=== PATIENT | male | born 1950 | race African-American/Black ===

== ENCOUNTER → 2016-07-06 | Outpatient (CLI) | payer OTHER ==
[~2016-07-06] MED LIST: AMLO10TA2 PO; DIAZ10TA PO; LORA0.5T PO; OXYC1TAB9 PO; PHEN100C PO; WARF5TAB7 PO
== END | disposition home or self-care (01) ==
LOC: CFH 11:53
PROVIDERS: ATTEND Family Medicine
DX: M25.561 Pain in right knee (principal)

== ENCOUNTER → 2016-09-17 | Outpatient (CLI) | payer OTHER | END | disposition home or self-care (01) | LOC: CFH 14:06 | PROVIDERS: ATTEND Family Medicine | DX: M19.012 Primary osteoarthritis, left shoulder (principal) ==

== ENCOUNTER → 2016-12-15 | Outpatient (CLI) | payer OTHER | END | disposition home or self-care (01) | LOC: CFH 11:00 | PROVIDERS: ATTEND Family Medicine | DX: M25.561 Pain in right knee (principal) ==

== ENCOUNTER → 2017-02-19 | Outpatient (CLI) | payer OTHER | END | disposition home or self-care (01) | LOC: RAD 09:10 | PROVIDERS: ATTEND Family Medicine | DX: M47.894 Other spondylosis, thoracic region (principal); I27.82 Chronic pulmonary embolism; I12.9 Hypertensive chronic kidney disease with stage 1 through stage 4 chronic kidney disease, or unspecified chronic kidney disease; N18.9 Chronic kidney disease, unspecified | CPT/HCPCS: 71020; 93005 ==

== ENCOUNTER → 2017-03-12 | Outpatient (CLI) | payer OTHER ==
[~2017-03-12] MED LIST changes: +ALBU18HF PO; +ALLO100T30 PO; +PHEN50TA4 PO; +RIVA20TA PO; +SERT100T5 PO; +TOPI100T8 PO
== END ==
LOC: STAR 15:58
PROVIDERS: ATTEND Orthopaedic Surgery
DX: Z02.9 Encounter for administrative examinations, unspecified (principal)

== ENCOUNTER 2017-03-19 09:39 | Day surgery (SDC) | payer OTHER ==
[~2017-03-19] VITALS: Ht 177.8 cm; Wt 102.0 kg
[2017-03-19] MEDS ORDERED: LACTATED RINGERS 1,000 ML IV SCH (09:55)
[2017-03-19 10:13] VITALS: BP 144/85
[2017-03-19] MEDS ORDERED: MIDAZOLAM 1 MG/ML, 2ML ONE (10:34)
[2017-03-19] MEDS ORDERED: FENTANYL PF 100 MCG/2ML ONE ×2 (10:34→12:17)
[2017-03-19] MEDS ORDERED: BUPIVACAINE/PF 0.5% ONE (10:58)
[2017-03-19] MEDS ORDERED: LIDOCAINE/PF 1%-EPI 1:200K, 30 ML ONE (10:58)
[2017-03-19] MEDS ORDERED: LIDOCAINE-MPF 2% ,5ML ONE (11:18)
[2017-03-19] MEDS ORDERED: EPHEDRINE 50 MG/ML, 1ML ONE (11:18)
[2017-03-19] MEDS ORDERED: ALBUTEROL HFA 90 MCG/SPRAY INH PRN (11:30)
[2017-03-19] MEDS ORDERED: BUPIVACAINE/PF-EPI 0.5% 1:200K IM ONE (11:42)
[2017-03-19] MEDS ORDERED: LIDOCAINE 1%-EPI 1:100K, 30ML INFIL ONE (11:44)
[2017-03-19 11:49] LABS: ASPARTATE AMINO TRANSFERASE 12 U/L (15-37); BLOOD UREA NITROGEN 19 mg/dL (7-18)
[2017-03-19 11:50] LABS: HEMATOCRIT 43.5 % (39.2-51.8); HEMOGLOBIN 14.3 g/dL (13.7-18.0); WHITE BLOOD COUNT 7.9 x10^3/uL (3.4-10)
[2017-03-19] MEDS ORDERED: PROMETHAZINE 25 MG/ML, 1ML IV PRN (12:00)
[2017-03-19] MEDS ORDERED: LORazepam 2 MG/ML, 1ML IVPush PRN (12:00)
[2017-03-19] MEDS ORDERED: OXYcodone 5 MG/5 ML ORAL.SOL UDC PO PRN (12:00)
[2017-03-19] MEDS ORDERED: ACETAMINOPHEN 325 MG TABLET PO PRN (12:00)
[2017-03-19] MEDS ORDERED: LABETALOL 5MG/ML, 20ML IV PRN (12:00)
[2017-03-19] MEDS ORDERED: HYDROmorphone 1 MG/ML, 1ML IV PRN (12:00)
[2017-03-19] MEDS ORDERED: hydrALAzine 20 MG/ML, 1ML IV PRN (12:00)
[2017-03-19] MEDS ORDERED: ALBUTEROL SULFATE 2.5 MG/3 ML NPPB PRN (12:00)
[2017-03-19] MEDS ORDERED: ACETAMINOPHEN 650 MG/20.3 ML UDC ONE (12:16)
[2017-03-19] MEDS ORDERED: OXYcodone 5 MG/5 ML ORAL.SOL UDC ONE (12:17)
[2017-03-19] MEDS ORDERED: EPINEPHRINE 1 MG/ML, 1ML ONE (12:29)
[2017-03-19] MEDS: FENTANYL PF 100 MCG/2ML IV PRN ×2 (12:33→12:40)
[2017-03-19] MEDS ORDERED: CEFAZOLIN 1,000 MG ONE (12:40)
[2017-03-19] MEDS ORDERED: NEOSTIGMINE 1 MG/ML, 10ML ONE (12:40)
[2017-03-19] MEDS ORDERED: GLYCOPYRROLATE 0.2MG/1ML, 5ML ONE (12:40)
[2017-03-19] MEDS ORDERED: SUCCINYLCHOLINE 20 MG/ML, 10ML ONE (12:40)
[2017-03-19] MEDS ORDERED: ONDANSETRON 2MG/ML, 2ML ONE (12:40)
[2017-03-19] MEDS ORDERED: PROPOFOL 10 MG/ML, 20ML ONE (12:40)
[2017-03-19] MEDS ORDERED: ROCURONIUM 10 MG/ML,10ML ONE (12:40)
[2017-03-19] MEDS ORDERED: DEXAMETHASONE 4 MG/ML, 1ML ONE (12:40)
[2017-03-19] MEDS ORDERED: HYDROmorphone 2 MG/ML, 1ML ONE (12:42)
[2017-03-19] MEDS ORDERED: TOPIRAMATE 100 MG TABLET PO SCH (21:00)
[2017-03-20] MEDS ORDERED: SERTRALINE 100MG TABLET PO SCH (09:00)
[2017-03-20] MEDS ORDERED: RIVAROXABAN 20 MG TABLET PO SCH (09:00)
[2017-03-20] MEDS ORDERED: PHENYTOIN 50 MG TAB.CHEW PO SCH (09:00)
[2017-03-20] MEDS ORDERED: ALLOPURINOL 100 MG TABLET PO SCH (09:00)
[2017-03-20] MEDS ORDERED: TEMPLATE NON-FORMULARY MED. (Amlodipine Besylate (Amlodipine Besylate**) 10 MG) PO SCH (09:00)
== END 2017-03-19 14:40 ==
LOC: OUT 09:39
PROVIDERS: ATTEND Orthopaedic Surgery
DX: S83.271A Complex tear of lateral meniscus, current injury, right knee, initial encounter (principal); M94.261 Chondromalacia, right knee; M11.261 Other chondrocalcinosis, right knee; M65.861 Other synovitis and tenosynovitis, right lower leg; I10 Essential (primary) hypertension; Z86.718 Personal history of other venous thrombosis and embolism; X58.XXXA Exposure to other specified factors, initial encounter; Y93.89 Activity, other specified; Y92.89 Other specified places as the place of occurrence of the external cause; Y99.8 Other external cause status
CPT/HCPCS: 29881; 36415; 80053; 85025; J0171; J0330; J0690; J1100; J1170; J2250; J2405; J2704; J3010; J3490; J7120; J2710

== ENCOUNTER 2017-08-07 12:15 | Emergency (ER) | payer OTHER ==
[~2017-08-07] VITALS: Ht 177.8 cm; Wt 103.2 kg
[~2017-08-07 12:15] MED LIST changes: +WARF-36 PO; -WARF5TAB7 PO
[2017-08-07 12:16] VITALS: BP 133/79
== END 2017-08-07 12:45 | disposition home or self-care (01) ==
LOC: ED 12:30
DX: I88.9 Nonspecific lymphadenitis, unspecified (principal); I10 Essential (primary) hypertension; G40.909 Epilepsy, unspecified, not intractable, without status epilepticus
CPT/HCPCS: 99282

== ENCOUNTER 2017-09-23 20:57 | Emergency (ER) | payer OTHER ==
[~2017-09-23] VITALS: Ht 177.8 cm; Wt 104.5 kg
[~2017-09-23 20:57] MED LIST changes: +OXYC-432 PO; -OXYC1TAB9 PO
[2017-09-23] MEDS ORDERED: MORPHINE SULFATE 4 MG/ML, 1ML IVPush PRN (22:30)
[2017-09-23] MEDS ORDERED: MORPHINE SULFATE 4 MG/ML, 1ML ONE (22:40)
[2017-09-23 22:49] LABS: BASOPHILS # (AUTO) 0.07 x10^3/uL (0-0.1); BASOPHILS % (AUTO) 1 % (0-1); EOSINOPHILS # (AUTO) 0.29 x10^3/uL (0-0.4); EOSINOPHILS % (AUTO) 4 % (1-7); LYMPHOCYTES # (AUTO) 1.78 x10^3/uL (1-3.4); LYMPHOCYTES % (AUTO) 23 % (22-44); MD NO; MEAN CORPUSCULAR HEMOGLOBIN 32.8 pg (27.5-34.5); MEAN CORPUSCULAR HGB CONC 33.6 g/dL (33.2-36.2); MEAN CORPUSCULAR VOLUME 97.8 fL (81-97); MEAN PLATELET VOLUME 8.5 fL (7.4-10.4); MONOCYTES # (AUTO) 0.95 x10^3/uL (0.2-0.8); MONOCYTES % (AUTO) 12 % (2-9); NEUTROPHILS # (AUTO) 4.55 x10^3/uL (1.8-6.8); NEUTROPHILS % (AUTO) 60 % (42-75); PLATELET COUNT 139 x10^3/uL (130-400); RED BLOOD COUNT 4.21 x10^6/uL (4.38-5.82); RED CELL DISTRIBUTION WIDTH 14.1 % (9.4-14.8)
[2017-09-23 22:55] LABS: ALBUMIN 3.3 g/dL (3.4-5.0); ANION GAP 5 mmol/L (5-15); CALCIUM 8.5 mg/dL (8.5-10.1); CHLORIDE 113 mmol/L (98-107)
[2017-09-23 22:59] LABS: ALANINE AMINOTRANSFERASE 23 U/L (12-78); ALKALINE PHOSPHATASE 164 U/L (45-117); BILIRUBIN,TOTAL 0.4 mg/dL (0.2-1.0); CREATININE 1.78 mg/dL (0.7-1.3); TOTAL PROTEIN 7.4 g/dL (6.4-8.2)
[2017-09-24 00:47] VITALS: BP 137/76
[2017-09-24] MEDS ORDERED: HYDROcodone/APAP 5/325 TABLET ONE (00:57)
[2017-09-24] MEDS ORDERED: HYDROcodone/APAP 5/325 TABLET PO ONE (01:00)
== END 2017-09-24 01:23 | disposition home or self-care (01) ==
LOC: ED 23:26
DX: M25.562 Pain in left knee (principal); M79.662 Pain in left lower leg; M54.12 Radiculopathy, cervical region; I10 Essential (primary) hypertension; G43.909 Migraine, unspecified, not intractable, without status migrainosus; M19.90 Unspecified osteoarthritis, unspecified site; Z86.711 Personal history of pulmonary embolism
CPT/HCPCS: 36415; 70450; 71045; 80053; 80185; 85025; 93005; 93970; 96374

== ENCOUNTER 2017-09-29 17:20 | Emergency (ER) | payer OTHER ==
[~2017-09-29] VITALS: Ht 177.8 cm; Wt 100.0 kg
[2017-09-29] MEDS ORDERED: SODIUM CHLORIDE FLUSH 10ML SYR IVF ONE (18:00)
[2017-09-29 18:23] LABS: ALBUMIN 3.5 g/dL (3.4-5.0); ANION GAP 7 mmol/L (5-15); CALCIUM 8.6 mg/dL (8.5-10.1); CHLORIDE 110 mmol/L (98-107); CREATININE 1.86 mg/dL (0.7-1.3)
[2017-09-29] MEDS ORDERED: DIAZ2TAB PO (18:41)
[2017-09-29 18:43] LABS: BASOPHILS % (AUTO) 0 % (0-1); EOSINOPHILS # (AUTO) 0.12 x10^3/uL (0-0.4); EOSINOPHILS % (AUTO) 1 % (1-7); LYMPHOCYTES # (AUTO) 2.06 x10^3/uL (1-3.4); LYMPHOCYTES % (AUTO) 17 % (22-44); MD MORPH REVIEW ONLY; MEAN CORPUSCULAR HEMOGLOBIN 32.8 pg (27.5-34.5); MEAN CORPUSCULAR HGB CONC 33.4 g/dL (33.2-36.2); MEAN CORPUSCULAR VOLUME 98.1 fL (81-97); MEAN PLATELET VOLUME 8.9 fL (7.4-10.4); MONOCYTES # (AUTO) 1.38 x10^3/uL (0.2-0.8); MONOCYTES % (AUTO) 11 % (2-9); NEUTROPHILS # (AUTO) 8.86 x10^3/uL (1.8-6.8); NEUTROPHILS % (AUTO) 71 % (42-75); PLATELET COUNT 143 x10^3/uL (130-400); RED BLOOD COUNT 4.48 x10^6/uL (4.38-5.82); RED CELL DISTRIBUTION WIDTH 14.1 % (9.4-14.8)
[2017-09-29 18:45] LABS: <PLATELET ESTIMATE> ADEQUATE; <RBC MORPHOLOGY> NORMAL; LARGE PLATELETS 2+
[2017-09-29] MEDS ORDERED: PHENYTOIN SODIUM 1,000 MG in SODIUM CHLORIDE 0.9% 100 ML IVPB ONE (19:00)
[2017-09-29] MEDS ORDERED: FILTER 0.22 MICRON FOR PHENYTOIN IV PRN (19:00)
[2017-09-29 19:12] VITALS: BP 132/74
== END 2017-09-29 20:43 | disposition home or self-care (01) ==
LOC: ED 19:51
DX: G40.419 Other generalized epilepsy and epileptic syndromes, intractable, without status epilepticus (principal); I10 Essential (primary) hypertension; F32.9 Major depressive disorder, single episode, unspecified; Z86.718 Personal history of other venous thrombosis and embolism; Z79.899 Other long term (current) drug therapy
CPT/HCPCS: 36415; 80048; 80185; 82040; 85025; 93005; 96365; 99285; J1165

== ENCOUNTER 2018-06-01 10:45 | Outpatient (CLI) | payer MEDICARE ==
[~2018-06-01 10:45] MED LIST changes: -AMLO10TA2 PO; +AMLO10TA8 PO; +DIAZ2TAB PO; +SERT100T32 PO; -SERT100T5 PO
== END 2018-06-01 23:59 | disposition home or self-care (01) ==
LOC: CFH 10:45
PROVIDERS: ATTEND Family Medicine
DX: M47.816 Spondylosis without myelopathy or radiculopathy, lumbar region (principal)
CPT/HCPCS: 72114

== ENCOUNTER 2019-06-27 03:51 | Emergency (ER) | payer MEDICARE ==
[~2019-06-27] VITALS: Ht 177.8 cm; Wt 99.0 kg
--- NOTE | 2019-06-27 04:17 | NUR ---
PT REPORTS SEIZURE THAT CAUSED FALL FROM BED, C/O RIGHT HIP PAIN 10/12.
[2019-06-27] MEDS ORDERED: HEPARIN 25,000 UNITS/250ML PMX 250 ML ONE (04:23)
[2019-06-27] MEDS ORDERED: SODIUM CHLORIDE FLUSH 10ML SYR IVF ONE (05:00)
[2019-06-27] MEDS ORDERED: HYDROcodone/APAP 5/325 TABLET PO ONE (05:00)
[2019-06-27] MEDS ORDERED: HYDROcodone/APAP 5/325 TABLET ONE (05:06)
--- NOTE | 2019-06-27 05:11 | NUR ---
Pt to xray.
[2019-06-27 05:16] LABS: ALANINE AMINOTRANSFERASE 15 U/L (12-78); ALBUMIN 3.2 g/dL (3.4-5.0); ANION GAP 5 mmol/L (5-15); CALCIUM 8.8 mg/dL (8.5-10.1); CHLORIDE 110 mmol/L (98-107); CREATININE 1.63 mg/dL (0.7-1.3)
[2019-06-27] MEDS ORDERED: PHENYTOIN 100 MG CAPSULE ONE ×3 (05:16→05:44)
[2019-06-27 05:19] LABS: ALKALINE PHOSPHATASE 131 U/L (45-117); BILIRUBIN,TOTAL 0.1 mg/dL (0.2-1.0); TOTAL PROTEIN 7.3 g/dL (6.4-8.2)
[2019-06-27] MEDS ORDERED: PHENYTOIN 100 MG CAPSULE PO ONE ×2 (05:30→06:00)
[2019-06-27 05:36] VITALS: BP 157/98
--- NOTE | 2019-06-27 05:38 | NUR ---
Pt reports pain has subsided to 5/10.
[2019-06-27 05:39] LABS: BASOPHILS # (AUTO) 0.04 x10^3/uL (0-0.1); BASOPHILS % (AUTO) 1 % (0-1); EOSINOPHILS # (AUTO) 0.41 x10^3/uL (0-0.4); EOSINOPHILS % (AUTO) 8 % (1-7); LYMPHOCYTES # (AUTO) 1.34 x10^3/uL (1-3.4); LYMPHOCYTES % (AUTO) 27 % (22-44); MD NO; MEAN CORPUSCULAR HEMOGLOBIN 33.2 pg (27.5-34.5); MEAN CORPUSCULAR HGB CONC 33.5 g/dL (33.2-36.2); MEAN CORPUSCULAR VOLUME 99.2 fL (81-97); MEAN PLATELET VOLUME 8.6 fL (7.4-10.4); MONOCYTES # (AUTO) 0.58 x10^3/uL (0.2-0.8); MONOCYTES % (AUTO) 12 % (2-9); NEUTROPHILS # (AUTO) 2.65 x10^3/uL (1.8-6.8); NEUTROPHILS % (AUTO) 53 % (42-75); PLATELET COUNT 148 x10^3/uL (130-400); RED BLOOD COUNT 3.95 x10^6/uL (4.38-5.82); RED CELL DISTRIBUTION WIDTH 13.5 % (9.4-14.8)
== END 2019-06-27 06:11 | disposition home or self-care (01) ==
LOC: ED 05:05
DX: S70.01XA Contusion of right hip, initial encounter (principal); G40.409 Other generalized epilepsy and epileptic syndromes, not intractable, without status epilepticus; I10 Essential (primary) hypertension; G43.909 Migraine, unspecified, not intractable, without status migrainosus; Z76.0 Encounter for issue of repeat prescription; Z86.718 Personal history of other venous thrombosis and embolism; W18.30XA Fall on same level, unspecified, initial encounter; R51 Headache; Y93.89 Activity, other specified; Y92.89 Other specified places as the place of occurrence of the external cause; Y99.8 Other external cause status
CPT/HCPCS: 36415; 80053; 80185; 85025; 93005; 99285

== ENCOUNTER 2020-06-20 16:15 | Emergency (ER) | payer MEDICARE ==
[~2020-06-20] VITALS: Ht 177.8 cm; Wt 87.5 kg
[~2020-06-20 16:15] MED LIST changes: +AMLO-211 PO; -AMLO10TA8 PO; -OXYC-432 PO; +OXYC1TAB18 PO
--- NOTE | 2020-06-20 16:31 | NUR ---
"FLORIAN BEEN FALLING AND I'M ON XARELTO, MY PCP TOLD ME TO COME IN SINCE I HAVE DOUBLE VISION SINCE WEDNESDAY". PT STATES HE HAS BEEN HAVING FALLS OVER LAST 4 MONTHS. THINKS HE HAS HIT HIS HEAD TWICE IN LAST TWO WEEKS. C/O HENDERSON AND BALANCE ISSUES, DOES NOT USE WALKING AID, SOMETIMES DIZZYNESS, TROUBLE SLEEPING, AND HEARING HUMMING IN LEFT EAR. HX SZ, HEART MURMUR, BLOOD CLOTS.
[2020-06-20 17:49] LABS: ALBUMIN 3.3 g/dL (3.4-5.0); ANION GAP 3 mmol/L (5-15); CALCIUM 8.2 mg/dL (8.5-10.1); CHLORIDE 107 mmol/L (98-107); CREATININE 2.01 mg/dL (0.7-1.3)
[2020-06-20 17:49] LABS: MICROSCOPIC AUTO
[2020-06-20 17:57] LABS: BASOPHILS % (AUTO) 1 % (0-1); EOSINOPHILS % (AUTO) 3 % (1-7); LYMPHOCYTES % (AUTO) 18 % (22-44); MEAN CORPUSCULAR HEMOGLOBIN 33.7 pg (27.5-34.5); MEAN PLATELET VOLUME 8.1 fL (7.4-10.4); MONOCYTES % (AUTO) 13 % (2-9); NEUTROPHILS % (AUTO) 65 % (42-75); PLATELET COUNT 165 x10^3/uL (130-400); RED BLOOD COUNT 3.79 x10^6/uL (4.38-5.82); RED CELL DISTRIBUTION WIDTH 13.6 % (9.4-14.8)
[2020-06-20 18:07] LABS: MD NO
[2020-06-20 19:00] VITALS: BP 117/60
[2020-06-20] MEDS ORDERED: ACETAMINOPHEN 325 MG TABLET PO ONE (19:00)
[2020-06-20] MEDS ORDERED: ACETAMINOPHEN 325 MG TABLET ONE (19:15)
== END 2020-06-20 19:47 | disposition home or self-care (01) ==
LOC: ED 16:40
DX: S00.93XA Contusion of unspecified part of head, initial encounter (principal); M54.2 Cervicalgia; I25.2 Old myocardial infarction; I44.7 Left bundle-branch block, unspecified; I10 Essential (primary) hypertension; W18.30XA Fall on same level, unspecified, initial encounter; Y93.89 Activity, other specified; Y92.009 Unspecified place in unspecified non-institutional (private) residence as the place of occurrence of the external cause; Y99.8 Other external cause status
CPT/HCPCS: 36415; 70450; 70486; 80048; 81001; 82040; 85025; 87086; 93005; 99285

== ENCOUNTER 2020-06-29 13:33 | Inpatient (IN) | payer MEDICARE ==
[~2020-06-29] VITALS: Ht 177.8 cm; Wt 78.6 kg
[2020-06-29] MEDS ORDERED: SODIUM CHLORIDE FLUSH 10ML SYR IVF ONE ×2 (14:00→15:30)
--- NOTE | 2020-06-29 14:11 | NUR ---
Pt BIBA for having increased falls the last few weeks. Pt states he has been off balance, and having difficulty walking. Pt states he fell and hit head today. Pt denies LOC. Pt A&O x 4, with + CSM. Pt c/o HENDERSON and left shouder pain. Pt with stable VS. Will continue to monitor.
[2020-06-29] MEDS ORDERED: PLEASE ENTER WEIGHT MC SCH (15:30)
[2020-06-29 15:45] LABS: BASOPHILS % (AUTO) 1 % (0-1); EOSINOPHILS % (AUTO) 2 % (1-7); LYMPHOCYTES % (AUTO) 19 % (22-44); MEAN CORPUSCULAR HEMOGLOBIN 33.7 pg (27.5-34.5); MEAN CORPUSCULAR HGB CONC 34.1 g/dL (33.2-36.2); MEAN PLATELET VOLUME 8.3 fL (7.4-10.4); MONOCYTES % (AUTO) 11 % (2-9); NEUTROPHILS % (AUTO) 68 % (42-75); PLATELET COUNT 142 x10^3/uL (130-400); RED BLOOD COUNT 3.92 x10^6/uL (4.38-5.82); RED CELL DISTRIBUTION WIDTH 13.8 % (9.4-14.8)
[2020-06-29 15:46] LABS: MD NO
[2020-06-29 15:52] LABS: ALBUMIN 3.3 g/dL (3.4-5.0); ANION GAP 5 mmol/L (5-15); CALCIUM 8.6 mg/dL (8.5-10.1); CHLORIDE 108 mmol/L (98-107); CREATININE 1.66 mg/dL (0.7-1.3)
[2020-06-29 15:56] LABS: TROPONIN I < 0.015 ng/mL (0.000-0.045)
--- NOTE | 2020-06-29 16:30 | NUR ---
Pt calm in bed. C/o pain to left side of ribs. VSS. Will monitor.
--- NOTE | 2020-06-29 17:16 | NUR ---
Attempt to ambulate pt. Pt unstable on feet, shuffling feet when he walks, off balance. 2 person assist to keep pt from falling over. Provider aware. Will monitor.
[2020-06-29] MEDS ORDERED: MORPHINE SULFATE 4 MG/ML, 1ML ONE (17:25)
[2020-06-29] MEDS ORDERED: ONDANSETRON 2MG/ML, 2ML ONE (17:25)
[2020-06-29] MEDS: MORPHINE SULFATE 4 MG/ML, 1ML IVPush PRN ×2 (17:29→22:34)
[2020-06-29] MEDS ORDERED: ONDANSETRON 2MG/ML, 2ML IVPush ONE (18:00)
--- NOTE | 2020-06-29 19:06 | NUR ---
pt sleeping in bed, but awakens easily. no change in status at this time, and pt calm and cooperative.
[2020-06-29] MEDS ORDERED: SODIUM CHLORIDE FLUSH 10ML SYR IVF PRN (19:30)
[2020-06-29] MEDS ORDERED: MELATONIN 5 MG TABLET PO PRN (20:30)
[2020-06-29] MEDS ORDERED: DOCUSATE 100 MG CAPSULE PO PRN (20:30)
[2020-06-29] MEDS ORDERED: LIDODERM 5% PATCH TD PRN (20:30)
[2020-06-29] MEDS ORDERED: hydrALAzine 20 MG/ML, 1ML IVPush PRN (20:30)
[2020-06-29 22:44] VITALS: BP 134/81
[2020-06-29 22:52] VITALS: BP 134/81
[2020-06-30 00:38] VITALS: BP 141/82
[2020-06-30] MEDS: ACETAMINOPHEN 325 MG TABLET PO PRN ×4 (03:44→23:49)
[2020-06-30 05:35] LABS: BASOPHILS % (AUTO) 1 % (0-1); EOSINOPHILS % (AUTO) 1 % (1-7); LYMPHOCYTES % (AUTO) 18 % (22-44); MEAN CORPUSCULAR HEMOGLOBIN 33.8 pg (27.5-34.5); MEAN CORPUSCULAR HGB CONC 34.4 g/dL (33.2-36.2); MEAN PLATELET VOLUME 8.4 fL (7.4-10.4); MONOCYTES % (AUTO) 12 % (2-9); NEUTROPHILS % (AUTO) 68 % (42-75); PLATELET COUNT 136 x10^3/uL (130-400); RED CELL DISTRIBUTION WIDTH 13.5 % (9.4-14.8)
[2020-06-30 05:37] LABS: MD NO
[2020-06-30 05:38] LABS: ANION GAP 5 mmol/L (5-15); CALCIUM 8.9 mg/dL (8.5-10.1); CHLORIDE 108 mmol/L (98-107); CREATININE 1.47 mg/dL (0.7-1.3)
[2020-06-30 06:44] VITALS: BP 143/80
[2020-06-30 08:20] VITALS: BP_SYST 138; BP_SYST 148; BP_DIAS 80; BP_DIAS 86; BP_DIAS 87
[2020-06-30] MEDS ORDERED: CYANOCOBALAMIN 1,000 MCG/ML, 1ML IM ONE (08:30)
[2020-06-30] MEDS: MULTIVITS,STRESS FORMULA 1 TABLET PO SCH (09:26)
[2020-06-30] MEDS: ZINC SULFATE 220 MG CAPSULE PO SCH (09:26)
[2020-06-30] MEDS: CHOLECALCIFEROL 5,000u TAB PO SCH (09:26)
[2020-06-30 12:48] VITALS: BP 130/82
[2020-06-30 14:26] LABS: FREE T4 (FREE THYROXINE) 0.6 ng/dL (0.76-1.46)
[2020-06-30] MEDS ORDERED: GADOTERATE 10 MMOL/20ML SYR ONE (16:00)
[2020-06-30] MEDS: ASCORBIC ACID 500 MG TABLET PO SCH (17:20)
[2020-06-30 19:40] VITALS: BP 136/80
[2020-07-01 01:50] VITALS: BP 128/72
[2020-07-01 06:53] VITALS: BP 143/86
[2020-07-01] MEDS: MULTIVITS,STRESS FORMULA 1 TABLET PO SCH (08:59)
[2020-07-01] MEDS: SERTRALINE 50MG TABLET PO SCH (08:59)
[2020-07-01] MEDS: RIVAROXABAN 20 MG TABLET PO SCH (08:59)
[2020-07-01] MEDS: ASCORBIC ACID 500 MG TABLET PO SCH ×2 (08:59→17:32)
[2020-07-01] MEDS: ZINC SULFATE 220 MG CAPSULE PO SCH (08:59)
[2020-07-01] MEDS: AMLODIPINE 10 MG TAB PO SCH (08:59)
[2020-07-01] MEDS: CHOLECALCIFEROL 5,000u TAB PO SCH (08:59)
[2020-07-01] MEDS: ALLOPURINOL 100 MG TABLET PO SCH (08:59)
[2020-07-01] MEDS: LEVOTHYROXINE 125 MCG TABLET PO SCH (09:05)
[2020-07-01] MEDS: ACETAMINOPHEN 325 MG TABLET PO PRN (09:06)
[2020-07-01 12:13] VITALS: BP 156/90
[2020-07-01 12:14] VITALS: BP_SYST 117; BP_SYST 177; BP_DIAS 90
[2020-07-01 12:15] VITALS: BP 157/104
[2020-07-01 20:00] VITALS: BP 123/82
[2020-07-02] VITALS (7 sets, daily range): BP systolic 135–157; BP diastolic 76–98
[2020-07-02] MEDS: LEVOTHYROXINE 125 MCG TABLET PO SCH (06:22)
[2020-07-02] MEDS: ASCORBIC ACID 500 MG TABLET PO SCH ×2 (07:54→20:15)
[2020-07-02] MEDS: ACETAMINOPHEN 325 MG TABLET PO PRN (07:54)
[2020-07-02] MEDS: RIVAROXABAN 20 MG TABLET PO SCH (09:02)
[2020-07-02] MEDS: AMLODIPINE 10 MG TAB PO SCH (09:02)
[2020-07-02] MEDS: ALLOPURINOL 100 MG TABLET PO SCH (09:02)
[2020-07-02] MEDS: MULTIVITS,STRESS FORMULA 1 TABLET PO SCH (09:02)
[2020-07-02] MEDS: SERTRALINE 50MG TABLET PO SCH (09:02)
[2020-07-02] MEDS: CHOLECALCIFEROL 5,000u TAB PO SCH (09:02)
[2020-07-02] MEDS: ZINC SULFATE 220 MG CAPSULE PO SCH (09:02)
[2020-07-02] MEDS: COLESTIPOL GRANULES 5 GM PACKET PO SCH ×2 (13:15→20:15)
[2020-07-03 01:43] VITALS: BP 131/77
[2020-07-03] MEDS: LEVOTHYROXINE 125 MCG TABLET PO SCH (05:08)
[2020-07-03 06:43] VITALS: BP 123/82
[2020-07-03] MEDS: COLESTIPOL GRANULES 5 GM PACKET PO SCH (08:18)
[2020-07-03] MEDS: RIVAROXABAN 20 MG TABLET PO SCH (08:19)
[2020-07-03] MEDS: MULTIVITS,STRESS FORMULA 1 TABLET PO SCH (08:19)
[2020-07-03] MEDS: ASCORBIC ACID 500 MG TABLET PO SCH (08:19)
[2020-07-03] MEDS: ZINC SULFATE 220 MG CAPSULE PO SCH (08:19)
[2020-07-03] MEDS: SERTRALINE 50MG TABLET PO SCH (08:19)
[2020-07-03] MEDS: ALLOPURINOL 100 MG TABLET PO SCH (08:19)
[2020-07-03] MEDS: AMLODIPINE 10 MG TAB PO SCH (08:19)
[2020-07-03] MEDS ORDERED: CHOLECALCIFEROL 5,000u TAB PO SCH (09:00)
[2020-07-03] MEDS ORDERED: PHEN50TA4 PO (11:59)
[2020-07-03] MEDS ORDERED: ASCO500T9 PO (11:59)
[2020-07-03] MEDS ORDERED: CHOL500045 PO (11:59)
[2020-07-03] MEDS ORDERED: LEVO125T PO (11:59)
[2020-07-03 12:14] VITALS: BP 126/76
== END 2020-07-03 15:00 | disposition home health service (06) | DRG 918 ==
LOC: ED 15:04 → EDIP 19:26 → 4EST 22:09 → DCLOUNGE 07-03 14:50
PROVIDERS: ADMIT Hospitalist; ATTEND Family Medicine
DX: T42.0X1A Poisoning by hydantoin derivatives, accidental (unintentional), initial encounter (principal); D68.59 Other primary thrombophilia; E55.9 Vitamin D deficiency, unspecified; G40.909 Epilepsy, unspecified, not intractable, without status epilepticus; E03.9 Hypothyroidism, unspecified; D53.9 Nutritional anemia, unspecified; H93.12 Tinnitus, left ear; W01.0XXA Fall on same level from slipping, tripping and stumbling without subsequent striking against object, initial encounter; I12.9 Hypertensive chronic kidney disease with stage 1 through stage 4 chronic kidney disease, or unspecified chronic kidney disease; N18.30 Chronic kidney disease, stage 3 unspecified; G43.909 Migraine, unspecified, not intractable, without status migrainosus; R26.0 Ataxic gait; R29.6 Repeated falls; M54.2 Cervicalgia; R00.1 Bradycardia, unspecified; F17.200 Nicotine dependence, unspecified, uncomplicated; G51.32 Clonic hemifacial spasm, left; G62.9 Polyneuropathy, unspecified; Z79.01 Long term (current) use of anticoagulants; Z80.3 Family history of malignant neoplasm of breast; Z86.711 Personal history of pulmonary embolism; Z86.718 Personal history of other venous thrombosis and embolism; Y93.89 Activity, other specified; Y92.098 Other place in other non-institutional residence as the place of occurrence of the external cause; Y99.8 Other external cause status
CPT/HCPCS: 36415; 70450; 70486; 70553; 72125; 80048; 80185; 82040; 82306; 82607; 83735; 84439; 84443; 84481; 84484; 85025; 93005; 93306; 96374; G0378; J2405; A9575; J2270; J3420

== ENCOUNTER 2020-08-10 13:00 | Emergency (ER) | payer MEDICARE ==
[~2020-08-10] VITALS: Ht 177.8 cm; Wt 86.0 kg
[~2020-08-10 13:00] MED LIST changes: +ASCO500T9 PO; +CHOL500045 PO; +LEVO125T PO
--- NOTE | 2020-08-10 13:26 | NUR ---
PT AMBULATORY TO ROOM 13 W/ C/O POSSIBLE SZ LIKE ACTIVITY. PT STATES HE RAN OUT OF HIS DILANTIN MEDS AND THEN WHEN HE WAS ABLE TO GET THEM FILLED TOOK DOUBLE DOSES TO MAKE UP FOR IT. PT STATES HE IS CURRENTLY ON DILANTIN 50 MG Q8H AND STATES "EVERYTHING IS FOGGY. IT ALL FEELS WEIRD. I FEEL LIKE I'M CONFUSED. MY TONGUE HAS BITE LI AND WOUNDS LIKE I'VE BIT MYSELF THROUGH A SEIZURE. I ALSO HAVEN'T HAD MY LEVEL CHECKED SINCE I WAS ADMITTED HERE". PT RESTING ON GURTERA. NADN. MONITORS APPLIED. VSS. PIV INITIATED. WARM BLANKET PROVIDED.
[2020-08-10 14:19] LABS: BASOPHILS % (AUTO) 1 % (0-1); EOSINOPHILS % (AUTO) 2 % (1-7); LYMPHOCYTES % (AUTO) 22 % (22-44); MEAN CORPUSCULAR HEMOGLOBIN 33.3 pg (27.5-34.5); MEAN PLATELET VOLUME 8.8 fL (7.4-10.4); MONOCYTES % (AUTO) 13 % (2-9); NEUTROPHILS % (AUTO) 62 % (42-75); PLATELET COUNT 195 x10^3/uL (130-400); RED BLOOD COUNT 3.98 x10^6/uL (4.38-5.82); RED CELL DISTRIBUTION WIDTH 13.8 % (9.4-14.8)
[2020-08-10 14:20] LABS: MD NO
--- NOTE | 2020-08-10 14:20 | NUR ---
PT RESTING ON GURNEY. NADN. SHUKLA.
[2020-08-10 14:29] LABS: ALANINE AMINOTRANSFERASE 26 U/L (12-78); ALBUMIN 3.5 g/dL (3.4-5.0); ANION GAP 5 mmol/L (5-15); CALCIUM 8.6 mg/dL (8.5-10.1); CHLORIDE 111 mmol/L (98-107); CREATININE 1.57 mg/dL (0.7-1.3)
[2020-08-10 14:31] LABS: ALKALINE PHOSPHATASE 121 U/L (45-117); BILIRUBIN,TOTAL 0.4 mg/dL (0.2-1.0); TOTAL PROTEIN 7.4 g/dL (6.4-8.2)
[2020-08-10] MEDS ORDERED: PHENYTOIN 100 MG CAPSULE PO ONE (15:00)
[2020-08-10] MEDS ORDERED: PHENYTOIN 100 MG CAPSULE ONE (15:17)
[2020-08-10 15:24] VITALS: BP 125/80
--- NOTE | 2020-08-10 15:24 | NUR ---
PT RESTING ON GURNEY. NADN. SHUKLA.
== END 2020-08-10 15:40 | disposition home or self-care (01) ==
LOC: ED 13:50
DX: G40.309 Generalized idiopathic epilepsy and epileptic syndromes, not intractable, without status epilepticus (principal); I12.9 Hypertensive chronic kidney disease with stage 1 through stage 4 chronic kidney disease, or unspecified chronic kidney disease; N18.30 Chronic kidney disease, stage 3 unspecified; M70.21 Olecranon bursitis, right elbow; R94.31 Abnormal electrocardiogram [ECG] [EKG]; G43.909 Migraine, unspecified, not intractable, without status migrainosus; M10.9 Gout, unspecified; Z86.73 Personal history of transient ischemic attack (TIA), and cerebral infarction without residual deficits; Z86.718 Personal history of other venous thrombosis and embolism
CPT/HCPCS: 36415; 80053; 80185; 85025; 93005; 99284